=== PATIENT | female | born 1990 | race Caucasian/White ===

== ENCOUNTER → 2020-04-22 | Outpatient (CLI) | payer BC ==
[~2020-04-22] MED LIST: CEPH500 PO; CRUTCH3 USE; FLUT44OIA; HYDACE5 PO; HYDACE7.5 PO; IBUP600 PO; MUPI2TO TOP; Nortrel1 EAC1 PO; PHENA200 PO; Prinivil10 MG PO; RXCODGUASY PO; SULTRIDS PO; Synthroid75 MCG; [UNRECOGNIZED DRUG - OTHER]
[2020-04-22 15:42] LABS: Anion Gap 5 mmol/L (6-16); Blood Urea Nitrogen 13 mg/dL (8-24); Bun/Creatinine Ratio 19.3 (12.0-20.0); CO2, Blood 28 mmol/L (21-32); Calcium, Blood 9.4 mg/dL (8.5-10.1); Chloride, Blood 105 mmol/L (98-108); Creatinine, Blood 0.67 mg/dL (0.40-1.00); Free Thyroxine 1.14 ng/dL (0.70-1.60); Glomerular Filtration Rate >60 (60-); Glucose, Blood 89 mg/dL (70-99); Potassium, Blood 3.8 mmol/L (3.5-5.5); Sodium, Blood 138 mmol/L (136-145)
== END | disposition home or self-care (01) ==
LOC: LAB 14:04
PROVIDERS: Hospitalist
DX: E03.9 Hypothyroidism, unspecified (principal); I10 Essential (primary) hypertension
CPT/HCPCS: 80048; 84439; 84443

== ENCOUNTER → 2020-06-09 | Outpatient (CLI) | payer BC | END | disposition home or self-care (01) | LOC: LAB 10:35 → LAB SHORT 10:35 → LAB FUT 06-08 10:25 | DX: R19.7 Diarrhea, unspecified (principal) | CPT/HCPCS: 87015; 87045; 87046; 87177; 87205; 87209; 87328; 87329; 87493; 87899 ==

== ENCOUNTER → 2021-06-09 | Outpatient (CLI) | payer SELFPAY ==
[2021-06-10 07:11] LABS: TSH 3.81 uIU/mL (0.450-4.500)
== END | disposition home or self-care (01) ==
LOC: LAB SHORT 08:45
PROVIDERS: Hospitalist
DX: E03.9 Hypothyroidism, unspecified (principal)
CPT/HCPCS: 84439; 84443; 84481

== ENCOUNTER → 2022-06-29 | Outpatient (CLI) | payer BC ==
[2022-06-29 16:12] LABS: Free Thyroxine 1.12 ng/dL (0.70-1.60)
[2022-06-29 16:17] LABS: Thyroid Stimulating Hormone 3.25 uIU/mL (0.360-4.800); Triiodothyronine, Free 2.7 pg/mL (2.18-3.98)
== END | disposition home or self-care (01) ==
LOC: LAB SHORT 08:50
PROVIDERS: Hospitalist
DX: I10 Essential (primary) hypertension (principal); E03.9 Hypothyroidism, unspecified
CPT/HCPCS: 84439; 84443; 84481

== ENCOUNTER → 2022-08-15 | Outpatient (CLI) | payer BC | END | disposition home or self-care (01) | LOC: LAB 13:28 → LAB SHORT 13:28 | PROVIDERS: Hospitalist | DX: Z12.4 Encounter for screening for malignant neoplasm of cervix (principal) | CPT/HCPCS: G0145 ==